=== PATIENT | male | born 1995 | race Caucasian/White ===

== ENCOUNTER 2018-03-17 01:43 | Emergency (ER) | payer BC, MEDICAID ==
[~2018-03-17] VITALS: Ht 167.6 cm; Wt 63.5 kg
[2018-03-17] MEDS ORDERED: ZONEGRAN100 MG PO (01:52)
[2018-03-17 02:48] VITALS: BP 93/59
== END 2018-03-17 02:49 | disposition home or self-care (01) ==
LOC: M.ERS 01:43
DX: S01.112A Laceration without foreign body of left eyelid and periocular area, initial encounter (principal); W06.XXXA Fall from bed, initial encounter; Y93.89 Activity, other specified; Y92.89 Other specified places as the place of occurrence of the external cause; Y99.8 Other external cause status